=== PATIENT | male | born 1955 | race Caucasian/White ===

== ENCOUNTER 2019-11-13 06:52 | Observation (INO) | payer OTHER ==
[2019-11-10 17:06] LABS: BASOPHILS % 0.3 % (0.0-1.0); EOSINOPHILS # (AUTO) 0.3 (0.0-0.4); EOSINOPHILS % 2.9 % (0.0-6.0); HEMATOCRIT 46.6 % (38.2-49.6); HEMOGLOBIN 15.7 g/dL (14.0-18.0); LYMPHOCYTES # (AUTO) 2.5 (1.0-3.2); LYMPHOCYTES % 24.1 % (18.0-39.1); MEAN CORPUSCULAR HEMOGLOBIN 33.5 pg (28-32); MEAN CORPUSCULAR HGB CONC 33.7 g/dL (31-35); MEAN CORPUSCULAR VOLUME 99.6 fL (81-99); MONOCYTES # (AUTO) 0.8 (0.2-0.8); MONOCYTES % 8.1 % (4.4-11.3); NEUTROPHILS # (AUTO) 6.4 (2.1-6.9); NEUTROPHILS % 63.2 % (38.7-80.0); PLATELET COUNT 233 x10e3/uL (140-360); RED BLOOD COUNT 4.68 x10e6/uL (4.3-5.7); RED CELL DISTRIBUTION WIDTH 14.7 % (11.7-14.4)
[2019-11-10 17:18] LABS: INR 0.84; PARTIAL THROMBOPLASTIN TIME 23.4 seconds (23.8-35.5)
[2019-11-10 17:23] LABS: ANION GAP 15.8 mmol/L (8-16); BLOOD UREA NITROGEN 18 mg/dL (7-26); BUN/CREATININE RATIO 20 (6-25); CALCIUM 9.2 mg/dL (8.4-10.2); CARBON DIOXIDE 22 mmol/L (22-29); CHLORIDE 107 mmol/L (98-107); EST GLOMERULAR FILTRATION RATE > 60 ML/MIN (60-); GLUCOSE 134 mg/dL (74-118); POTASSIUM 3.8 mmol/L (3.5-5.1); SODIUM 141 mmol/L (136-145)
--- NOTE | 2019-11-10 18:02 | Diagnostic Imaging Report ---
EXAMINATION: CHEST 2 VIEWS INDICATION: PRE OP LUMBAR SURGERY COMPARISON: None FINDINGS: TUBES and LINES: None. LUNGS: Lungs are mildly hypoinflated. Bibasilar subsegmental atelectasis, left greater than right. There is no evidence of pneumonia or pulmonary edema. PLEURA: No pleural effusion or pneumothorax. HEART AND MEDIASTINUM: The cardiomediastinal silhouette is unremarkable. BONES AND SOFT TISSUES: No acute osseous lesion. Soft tissues are unremarkable. UPPER ABDOMEN: No free air under the diaphragm. IMPRESSION: Bibasilar atelectasis. Signed by: Dr. Shirin Norman M.D. on 11/10/2019 5:58 PM
[~2019-11-13] VITALS: Ht 182.9 cm; Wt 101.2 kg
[~2019-11-13 06:52] MED LIST: ALBUTEROL0.63 MG/3 INH; AZITHROMYCIN250 MG PO; BACITRACIN 50,000 UNIT VIAL ONE; BREO ELLIPTA 11 EACH INH; BUPIVACAINE 0.5%/EPI 30 ML SDV INJ ONE; CHANTEX; CHANTIX1 MG PO; COMBIVENT RESPIM4 GM IH; DICLOFENAC SODI75 MG PO; GABAPENTIN300 MG PO; HYDROCODON-ACE1 EAC9 PEG; METHOCARBAMOL750 MG PO; NORCO 7.5-3251 EACH PO; SPIRIVA18 MCG INH; SYMBICORT 80-10.2 GM INH; TAMIFLU75 MG PO; TESSALON PERLE100 MG PO; THROMBIN FOR SOLN 5,000 UNIT VIAL ONE
[2019-11-13] MEDS ORDERED: LIDOCAINE HCL (LTA) 4 ML SOLN ONE (07:13)
[2019-11-13] MEDS ORDERED: CEFAZOLIN SOD 1 GM/NS 50ML 100 ML IV ONE (08:03)
[2019-11-13] MEDS ORDERED: ZOLPIDEM TARTRATE 5 MG TAB PO PRN (09:45)
[2019-11-13] MEDS ORDERED: OXYCODONE/ACETAMINOPHEN 5-325 1 EACH TABLET PO PRN (09:45)
[2019-11-13] MEDS ORDERED: ALBUTEROL SULF 0.083% NEB SOLN 3 ML NEB INH PRN (09:45)
[2019-11-13] MEDS ORDERED: ACETAMINOPHEN 325 MG TAB PO PRN (09:45)
[2019-11-13] MEDS ORDERED: HYDROMORPHONE 2MG/ML 2 MG/ML ML IV PRN (09:45)
[2019-11-13] MEDS ORDERED: MORPHINE SULFATE INJ 4 MG/ML INJ 1ML IM PRN (09:45)
[2019-11-13] MEDS ORDERED: MAGNESIUM/ALUMINUM/SIMETHICONE 30 ML UDC PO PRN (09:45)
[2019-11-13] MEDS ORDERED: PROMETHAZINE HCL (IM) 25 MG/ML VIAL IM PRN (09:45)
[2019-11-13] MEDS ORDERED: METHOCARBAMOL 750 MG TAB PO PRN (09:45)
[2019-11-13] MEDS ORDERED: ONDANSETRON HCL INJ 2MG/ML 2ML 2 MG/ML VIAL IV PRN (09:45)
--- OUTSIDE RECORDS SUMMARY | 2019-11-13 09:54 | XMS REPORT | Continuity of Care Document ---
Author Author [facility] t Organization [facility] Address [address] [place] [address] Dr. Carr. [address] [place] [phone] Phone Unavailable Care Team Providers Care Filter Press Pumper Name Role Phone BHUPINDER BUSCH Attphys Unavailable Problems This patient has no known problems. Allergies, Adverse Reactions, Alerts This patient has no known allergies or adverse reactions. Medications This patient has no known medications. Procedures This patient has no known procedures. Results Test Description Test Time Test Comments Results Result Comments Source CHEST 2 VIEWS 2019-11-10 17:57:00 [facility] [address] [place] [address] Patient Name: PAUL OHARA JR MR #: [id number] : 1955 Age/Sex: 64/M Req #: [id number] Adm Physician: Ordered by: BHUPINDER BUSCH MD Report #: [id number] Location: OR Room/Bed: Procedure: [id number] DX/CHEST 2 VIEWS Exam Date: 11/10/19 Exam Time: 1705 REPORT STATUS: Signed EXAMINATION: CHEST 2 VIEWS INDICATION: PRE OP LUMBAR SURGERY COMPARISON: None FINDINGS: TUBES and LINES: None. LUNGS: Lungs are mildly hypoinflated. Bibasilar subsegmental atelectasis, left greater than right. There is no evidence of pneumonia or pulmonary edema. PLEURA: No pleural effusion or pneumothorax. HEART AND MEDIASTINUM: The cardiomediastinal silhouette is unremarkable. BONES AND SOFT TISSUES: No acute osseous lesion. Soft tissues are unremarkable. UPPER ABDOMEN: No free air under the diaphragm. IMPRESSION: Bibasilar atelectasis. Signed by: Dr. Shirin Trevizo M.D. on 11/10/2019 5:58 PM Dictated By: ROQUE TREVIZO MD, MD 55 Transcribed By: FRANCISCO on 11/10/191757 COPY TO: BHUPINDER BUSCH MD
[2019-11-13] MEDS ORDERED: MORPHINE SULFATE INJ 4 MG/ML INJ 1ML ONE (10:01)
[2019-11-13] MEDS ORDERED: HYDRALAZINE HCL 20 MG/ML VIAL ONE (10:47)
--- NOTE | 2019-11-13 11:48 | Operative Report ---
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 POSTOPERATIVE DIAGNOSIS: Left L3-L4 lateral recess stenosis with neurogenic claudication, M48.062. PROCEDURES: Left L3-L4 laminotomy, medial facetectomy, and microsurgical lateral recess decompression, 14867. ANESTHESIA: General. INDICATIONS: The patient is a 64-year-old man, who presents with severe left L3-L4 lateral recess stenosis and was taken to surgery for lateral recess decompression. PROCEDURE IN DETAIL: After induction of anesthesia, the patient was placed on the operating table in prone position over Byron frame. Lumbar region was prepped and draped in sterile fashion. A preoperative x-ray was obtained. A small midline incision was created. Lumbar fascia was opened to the left of midline and a subperiosteal dissection was carried out to expose the left side of the L3 and L4 lamina and the medial aspect of the facet joint. A second x-ray confirmed correct localization. The operating microscope was brought in. A high-speed drill equipped with a kamala bur was used to drill the inferior aspect of lamina of L3 and the medial rim of the L3-L4 facet joint and superior rim of the lamina of L4. The markedly hypertrophic ligamentum flavum was resected until the dura and the left L4 traversing nerve root were fully exposed and decompressed. Meticulous hemostasis was secured. Retractor was removed. The lumbar fascia was closed with 0 Vicryl suture. Subcutaneous layer was closed with 2-0 Vicryl sutures. The skin was closed with 3-0 Monocryl sutures in subcuticular fashion. Steri-Strips and dressing were applied. The patient was awakened, extubated, and taken to Postanesthesia Care Unit in stable condition. No intraoperative complications were encountered. Estimated blood loss was 10 mL. Basilio Levi MD PP/MODL /[id number]
[2019-11-13 13:00] VITALS: BP 170/104
[2019-11-13 13:15] VITALS: BP 170/104
[2019-11-13] MEDS ORDERED: METOPROLOL TARTRATE INJ 1 MG/ML VIAL IV PRN (13:15)
[2019-11-13] MEDS: LACTATED RINGER'S 1,000 ML IV SCH ×2 (13:36→22:05)
[2019-11-13 14:28] VITALS: BP 150/84
--- NOTE | 2019-11-13 14:44 | Diagnostic Imaging Report ---
EXAM: SPINE 1 VW LUMBAR, SPINE 1 VW LUMBAR DATE: 11/13/2019 8:30 AM INDICATION: Intraoperative examination FINDINGS/IMPRESSION: Two crosstable intraoperative radiographs are obtained of the lumbar spine. An intraoperative verbal report was not requested. Please see operative report for further details. Localization instrumentation projects towards the posterior aspect of the L3-L4 intervertebral level. Signed by: Dr. Chuy Graves MD on 11/13/2019 2:40 PM
[2019-11-13] MEDS: GABAPENTIN 300 MG CAP PO SCH ×2 (14:57→21:08)
[2019-11-13] MEDS ORDERED: MIDAZOLAM HCL 2 MG/2 ML VIAL ONE (15:09)
[2019-11-13] MEDS ORDERED: FENTANYL CITRATE/PF 100MCG/2 ML INJ ONE (15:09)
[2019-11-13] MEDS: NON-FORMULARY MEDICATION (Diclofenac Sodium 75 MG) PO SCH (17:00)
[2019-11-13] MEDS: CEFAZOLIN SOD 1 GM/NS 50ML 50 ML IV SCH (17:28)
--- NOTE | 2019-11-13 18:56 | Consultation ---
DATE OF CONSULTATION: HISTORY OF PRESENT ILLNESS: The patient is a 64-year-old gentleman, who came to the hospital for surgery with Dr. Levi. He had L3-L4 laminectomy with facetectomy and the patient came out postop and was having high blood pressure and was called in for consult for blood pressure management. PAST MEDICAL HISTORY: History of asthma, history of low back pain, history of neuropathy, and history of osteoarthritis. MEDICATIONS: He takes at home are fluticasone, gabapentin, hydrocodone, ipratropium, albuterol, Combivent as needed, and methocarbamol 750 mg once a day. PAST SURGICAL HISTORY: Bilateral knee surgeries, lumbar injections and also decompression by Dr. Levi in the past. SOCIAL HISTORY: He is a smoker, no EtOH, no IV drug abuse either. FAMILY HISTORY: Noncontributory. REVIEW OF SYSTEMS: At this time, no chest pain and no shortness of breath. Positive pain at the surgical site and anxiety noted. PHYSICAL EXAMINATION: HEENT: Normocephalic, atraumatic. Pupils are reactive to light and accommodation. CVS: S1 and S2 normal. Regular rate and rhythm. ABDOMEN: Nontender, nondistended. BACK: Surgical site in bandage. EXTREMITIES: No clubbing, no cyanosis, and trace amount of edema. LABORATORY VALUES: White count is 10.19, hemoglobin of 15, hematocrit 46.6. Chemistry shows sodium 141, potassium 3.8. COVID-19 is nondetected. Coags were normal. ASSESSMENT: Mr. Mark Akers is status post laminectomy with elevated blood pressure. The patient has been given hydralazine and metoprolol 2.5 mg and is on Soma at this time, currently on oxycodone too. PLAN: I gave him 5 mg metoprolol q.6 hours as needed, also hydralazine in between more than likely secondary to pain. Further recommendation per clinical course. We will continue monitoring his blood pressure and discharge in the morning. MD LUIS F Wall/TAYLAL /[id number]
[2019-11-13] MEDS: IPRATROPIUM/ALBUTEROL SULFATE 4 GM INH INH SCH (19:00)
[2019-11-13 20:00] VITALS: BP 157/94
[2019-11-13] MEDS ORDERED: ROCURONIUM BROMIDE 10 MG/ML 5ML VIAL IV ONE (20:14)
[2019-11-13] MEDS ORDERED: PROPOFOL IV EMULSION 10 MG/ML 20 ML VIAL ONE (20:14)
[2019-11-13] MEDS ORDERED: ONDANSETRON HCL INJ 2MG/ML 2ML 2 MG/ML VIAL ONE (20:14)
[2019-11-13] MEDS ORDERED: NEOSTIGMINE 1 MG/ML 10ML VIAL ONE (20:14)
[2019-11-13] MEDS ORDERED: GLYCOPYRROLATE INJ 0.2 MG/ML VIAL ONE (20:14)
[2019-11-13] MEDS ORDERED: DEXAMETHASONE SOD PHOS INJ 4 MG/ML VIAL ONE (20:14)
[2019-11-13] MEDS ORDERED: ACETAMINOPHEN 1000 MG/100 ML IV ONE (20:14)
[2019-11-13] MEDS ORDERED: LIDOCAINE HCL 2% LOCAL INJ 5 ML SDV VIAL INJ ONE (20:14)
[2019-11-13] MEDS ORDERED: SEVOFLURANE INHAL SOLN 250 ML PEN BTL ONE (20:14)
[2019-11-13] MEDS ORDERED: ETOMIDATE 2 MG/ML 10 ML INJ IV ONE (20:14)
[2019-11-13 22:48] VITALS: BP 157/94
[2019-11-13] MEDS: CARISOPRODOL 350 MG TAB PO PRN (23:40)
[2019-11-13] MEDS: OXYCODONE/ACETAMINOPHEN 5-325 1 EACH TABLET PO PRN (23:40)
[2019-11-14] VITALS: BP 163/99
[2019-11-14] MEDS: CEFAZOLIN SOD 1 GM/NS 50ML 50 ML IV SCH ×2 (00:20→09:00)
[2019-11-14 04:00] VITALS: BP 137/90
[2019-11-14] MEDS: LACTATED RINGER'S 1,000 ML IV SCH (06:25)
[2019-11-14] MEDS: CARISOPRODOL 350 MG TAB PO PRN (06:37)
[2019-11-14] MEDS: OXYCODONE/ACETAMINOPHEN 5-325 1 EACH TABLET PO PRN ×2 (06:37→10:50)
--- NOTE | 2019-11-14 06:49 | NUR ---
PATIENT IS RESTING COMFORTABLY IN THE BED. BED IS IN LOWEST POSITION AND CALL YIP IS WITHIN REACH
[2019-11-14] MEDS: IPRATROPIUM/ALBUTEROL SULFATE 4 GM INH INH SCH (07:00)
[2019-11-14] MEDS ORDERED: NORCO 7.5-3251 EACH PO (07:45)
[2019-11-14] MEDS ORDERED: LOSARTAN POTASS25 MG PO (07:46)
[2019-11-14 08:15] VITALS: BP 129/78
--- NOTE | 2019-11-14 08:43 | Progress Note ---
DATE: SUBJECTIVE: A 64-year-old gentleman, who came in with lumbar stenosis, status post laminectomy and facetectomy by Dr. Levi. Currently doing well. Pain is controlled, 3/10 in intensity and has been taking Percocet, 2 tablets every 6 hours. MEDICATIONS: Currently, metoprolol as needed, hydralazine as needed. A consult was made for hypertension management. OBJECTIVE: VITAL SIGNS: Currently, temperature is 97.4, pulse of 62, respirations , blood pressure is 137/90, pulse oximetry of 95%. HEENT: Normocephalic and atraumatic. Pupils are reactive. CVS: S1 and S2 normal. Regular rate and rhythm. ABDOMEN: Nontender. Nondistended. EXTREMITIES: No clubbing, no cyanosis, no edema. The patient is in a compression stocking. LABORATORY VALUES: None done today. Chemistries are all stable. ASSESSMENT: Mr. Mark Akers with: 1. Status post laminectomy for lumbar stenosis and radiculopathy with facetectomy. 2. Hypertension. We will start the patient on losartan 25 mg twice a day and discharge him today with 25 mg twice a day of losartan, to be followed up in the clinic in about a week's time. Continue monitoring the patient's pain and pain medicine has been written by Dr. Levi. Further recommendation per clinical course. MD LUIS F Wall/TAYLAL /[id number]
[2019-11-14] MEDS: NON-FORMULARY MEDICATION (Diclofenac Sodium 75 MG) PO SCH (09:00)
[2019-11-14] MEDS: GABAPENTIN 300 MG CAP PO SCH (09:00)
[2019-11-14 09:02] VITALS: BP 129/78
--- NOTE | 2019-11-14 09:09 | NUR ---
ANTIBIOTIC INFUSING, ELDON NOTED AT THIS TIME, DISCUSSED DISCHARGE PLANNING, PT VERBALIZED UNDERSTANDING, CALL LIGHT WITHIN REACH
--- NOTE | 2019-11-14 10:52 | NUR ---
MEDICATED PER MD ORDER FOR PAIN, DISCHARGE INSTRUCTIONS REVIEWED WITH PT, VERBALIZED UNDERSTANDING, AWAITING RIDE FOR DISCHARGE
== END 2019-11-14 11:15 | disposition home or self-care (01) ==
LOC: OR 06:52 → PACU V 09:48 → MED/SURG 12:40
PROVIDERS: ADMIT Neurological Surgery; ATTEND Neurological Surgery
DX: M48.062 Spinal stenosis, lumbar region with neurogenic claudication (principal); I10 Essential (primary) hypertension; M54.16 Radiculopathy, lumbar region; G99.2 Myelopathy in diseases classified elsewhere
CPT/HCPCS: 36415; 63047; 71046; 72020; 80048; 85025; 85610; 85730; 86850; 86900; 87635; 88304; 93005; G0378 ×2; J0131; J0360; J0690 ×2; J1100; J1170; J2001; J2250; J2270; J2405; J2704; J2710; J3010; J7121

== ENCOUNTER 2020-05-05 07:03 | Inpatient (IN) | payer OTHER ==
[~2020-05-05] VITALS: Ht 182.9 cm; Wt 102.1 kg
[~2020-05-05 07:03] MED LIST changes: -BACITRACIN 50,000 UNIT VIAL ONE; -BUPIVACAINE 0.5%/EPI 30 ML SDV INJ ONE; +LOSARTAN POTASS25 MG PO; -THROMBIN FOR SOLN 5,000 UNIT VIAL ONE
[2020-05-05] MEDS ORDERED: ACETAMINOPHEN 325 MG TAB PO STA (07:19)
[2020-05-05] MEDS ORDERED: SODIUM CHLORIDE 0.9% 1000ML 1,000 ML ONE (07:27)
[2020-05-05 07:43] LABS: BASOPHILS % 0.3 % (0.0-1.0); EOSINOPHILS # (AUTO) 0.2 (0.0-0.4); EOSINOPHILS % 1.7 % (0.0-6.0); HEMATOCRIT 42.5 % (38.2-49.6); HEMOGLOBIN 14.8 g/dL (14.0-18.0); LYMPHOCYTES # (AUTO) 2.4 (1.0-3.2); LYMPHOCYTES % 26.5 % (18.0-39.1); MEAN CORPUSCULAR HEMOGLOBIN 33.9 pg (28-32); MEAN CORPUSCULAR HGB CONC 34.8 g/dL (31-35); MEAN CORPUSCULAR VOLUME 97.3 fL (81-99); NEUTROPHILS # (AUTO) 5.5 (2.1-6.9); NEUTROPHILS % 60.1 % (38.7-80.0); PLATELET COUNT 234 x10e3/uL (140-360); RED BLOOD COUNT 4.37 x10e6/uL (4.3-5.7); RED CELL DISTRIBUTION WIDTH 12.6 % (11.7-14.4)
[2020-05-05] MEDS ORDERED: SODIUM CHLORIDE 0.9% 1000ML 1,000 ML IV SCH (08:00)
[2020-05-05 08:01] LABS: ALANINE AMINOTRANSFERASE 74 IU/L (0-55); ALBUMIN 4.1 g/dL (3.5-5.0); ALBUMIN/GLOBULIN RATIO 1.5 (0.8-2.0); ALKALINE PHOSPHATASE 56 IU/L (40-150); ANION GAP 14.7 mmol/L (8-16); BLOOD UREA NITROGEN 11 mg/dL (7-26); BUN/CREATININE RATIO 10 (6-25); CALCIUM 9.6 mg/dL (8.4-10.2); CARBON DIOXIDE 23 mmol/L (22-29); CHLORIDE 103 mmol/L (98-107); CREATININE, SERUM 1.13 mg/dL (0.72-1.25); EST GLOMERULAR FILTRATION RATE > 60 ML/MIN (60-); GLUCOSE 113 mg/dL (74-118); POTASSIUM 3.7 mmol/L (3.5-5.1); SODIUM 137 mmol/L (136-145)
[2020-05-05] MEDS ORDERED: KETOROLAC TROMETHAMINE 30 MG/ML VIAL IV STA (08:58)
[2020-05-05] MEDS ORDERED: IOPAMIDOL 370 MG/ML 200 ML INFUS..BTL INJ ONE (09:51)
[2020-05-05] MEDS ORDERED: SODIUM CHLORIDE 0.9% 50ML 50 ML ONE (09:51)
[2020-05-05] MEDS ORDERED: CEFTRIAXONE SOD 1 GM/NS 50 ML 50 ML IV ONE (10:15)
[2020-05-05] MEDS ORDERED: CLONIDINE HCL0.1 MG PO (11:56)
[2020-05-05] MEDS ORDERED: LOSARTAN POTASS50 MG PO (11:57)
[2020-05-05] MEDS ORDERED: CHLORDIAZEPOXID25 MG PO (11:57)
[2020-05-05] MEDS ORDERED: BREO ELLIPTA 21 EACH IH (11:57)
[2020-05-05 12:51] VITALS: BP 148/90
[2020-05-05 13:56] LABS: BILIRUBIN,URINE NEGATIVE (NEGATIVE); CLARITY,URINE CLEAR (CLEAR); COLOR,URINE YELLOW (YELLOW); KETONES,URINE NEGATIVE (NEGATIVE); LEUKOCYTE ESTERASE ,URINE NEGATIVE (NEGATIVE); NITRITE,URINE NEGATIVE (NEGATIVE); PROTEIN,URINE DIPSTICK TRACE (NEGATIVE); URINE UROBILINOGEN 1 mg/dL (0.2 - 1)
[2020-05-05 13:57] LABS: BACTERIA,URINE RARE /HPF; RBC,URINE 21-50 /HPF (0-5)
[2020-05-05 14:00] VITALS: BP 148/90
[2020-05-05] MEDS: ONDANSETRON HCL INJ 2MG/ML 2ML 2 MG/ML VIAL IV PRN ×2 (15:10→19:23)
[2020-05-05] MEDS: MORPHINE SULFATE INJ 4 MG/ML INJ 1ML IV PRN ×2 (15:10→19:23)
[2020-05-05 16:00] VITALS: BP 143/90
[2020-05-05] MEDS: CLONIDINE HCL 0.1 MG TAB PO SCH (17:22)
[2020-05-05] MEDS: MULTIVITAMINS- 12 INJECTION 10 ML, FOLIC ACID MDV 5 MG, THIAMINE HCL INJ 100 MG in SODI... IV SCH (17:22)
[2020-05-05] MEDS: CHLORDIAZEPOXIDE HCL 25 MG CAP PO SCH (17:23)
[2020-05-05 20:00] VITALS: BP 140/79
[2020-05-05 20:16] VITALS: BP 140/79
[2020-05-06] VITALS (8 sets, daily range): BP systolic 125–141; BP diastolic 78–89
[2020-05-06] MEDS: MORPHINE SULFATE INJ 4 MG/ML INJ 1ML IV PRN ×4 (04:55→20:51)
[2020-05-06] MEDS: ONDANSETRON HCL INJ 2MG/ML 2ML 2 MG/ML VIAL IV PRN ×3 (04:55→09:20)
[2020-05-06 05:45] LABS: BASOPHILS % 0.3 % (0.0-1.0); EOSINOPHILS # (AUTO) 0.2 (0.0-0.4); EOSINOPHILS % 2.7 % (0.0-6.0); HEMATOCRIT 41.3 % (38.2-49.6); HEMOGLOBIN 13.7 g/dL (14.0-18.0); LYMPHOCYTES # (AUTO) 2.2 (1.0-3.2); LYMPHOCYTES % 33.3 % (18.0-39.1); MEAN CORPUSCULAR HEMOGLOBIN 33.3 pg (28-32); MEAN CORPUSCULAR HGB CONC 33.2 g/dL (31-35); MEAN CORPUSCULAR VOLUME 100.2 fL (81-99); MONOCYTES # (AUTO) 0.8 (0.2-0.8); MONOCYTES % 12.1 % (4.4-11.3); NEUTROPHILS # (AUTO) 3.4 (2.1-6.9); NEUTROPHILS % 51.1 % (38.7-80.0); PLATELET COUNT 234 x10e3/uL (140-360); RED BLOOD COUNT 4.12 x10e6/uL (4.3-5.7); RED CELL DISTRIBUTION WIDTH 12.3 % (11.7-14.4)
[2020-05-06 06:10] LABS: ANION GAP 12.8 mmol/L (8-16); BLOOD UREA NITROGEN 10 mg/dL (7-26); BUN/CREATININE RATIO 9 (6-25); CARBON DIOXIDE 25 mmol/L (22-29); CHLORIDE 104 mmol/L (98-107); CREATININE, SERUM 1.16 mg/dL (0.72-1.25); EST GLOMERULAR FILTRATION RATE > 60 ML/MIN (60-); GLUCOSE 92 mg/dL (74-118); POTASSIUM 3.8 mmol/L (3.5-5.1); SODIUM 138 mmol/L (136-145)
[2020-05-06] MEDS: MULTIVITAMINS- 12 INJECTION 10 ML, FOLIC ACID MDV 5 MG, THIAMINE HCL INJ 100 MG in SODI... IV SCH (07:08)
[2020-05-06] MEDS: CHLORDIAZEPOXIDE HCL 25 MG CAP PO SCH ×2 (09:13→09:15)
[2020-05-06] MEDS: CLONIDINE HCL 0.1 MG TAB PO SCH ×3 (09:15→21:00)
[2020-05-06] MEDS: KETOROLAC TROMETHAMINE 30 MG/ML VIAL IV PRN (18:20)
[2020-05-07] VITALS (8 sets, daily range): BP systolic 132–153; BP diastolic 62–88
[2020-05-07] MEDS: MULTIVITAMINS- 12 INJECTION 10 ML, FOLIC ACID MDV 5 MG, THIAMINE HCL INJ 100 MG in SODI... IV SCH (00:48)
[2020-05-07] MEDS: KETOROLAC TROMETHAMINE 30 MG/ML VIAL IV PRN (05:33)
[2020-05-07] MEDS ORDERED: CHLORDIAZEPOXIDE HCL 25 MG CAP PO PRN (07:45)
[2020-05-07] MEDS: CLONIDINE HCL 0.1 MG TAB PO SCH ×3 (08:45→21:49)
[2020-05-07] MEDS: NON-FORMULARY MEDICATION (Fluticasone/Vilanterol (Breo Ellipta 200-25 Mcg INH) 1 INH) INH SCH (09:00)
[2020-05-07] MEDS: MORPHINE SULFATE INJ 4 MG/ML INJ 1ML IV PRN ×3 (13:06→22:06)
[2020-05-07] MEDS: ENOXAPARIN SOD INJ 40 MG/0.4 ML SYR SC SCH (16:32)
[2020-05-08] MEDS: MULTIVITAMINS- 12 INJECTION 10 ML, FOLIC ACID MDV 5 MG, THIAMINE HCL INJ 100 MG in SODI... IV SCH (00:01)
[2020-05-08 05:08] VITALS: BP 142/99
[2020-05-08] MEDS: NON-FORMULARY MEDICATION (Fluticasone/Vilanterol (Breo Ellipta 200-25 Mcg INH) 1 INH) INH SCH (06:00)
[2020-05-08 08:26] VITALS: BP 138/74
[2020-05-08 08:30] VITALS: BP 138/74
[2020-05-08] MEDS: CLONIDINE HCL 0.1 MG TAB PO SCH ×2 (08:59→15:00)
[2020-05-08 13:13] VITALS: BP 141/84
[2020-05-08] MEDS: MORPHINE SULFATE INJ 4 MG/ML INJ 1ML IV PRN (14:39)
[2020-05-08 16:13] VITALS: BP 138/76
[2020-05-08] MEDS: ENOXAPARIN SOD INJ 40 MG/0.4 ML SYR SC SCH (17:00)
== END 2020-05-08 18:00 | disposition home health service (06) | DRG 698 ==
LOC: ER 07:11 → ERHOLD 10:06 → MED/SURG2 12:33
PROVIDERS: ADMIT Family Medicine; ATTEND Family Medicine
DX: N32.89 Other specified disorders of bladder (principal); G93.41 Metabolic encephalopathy; F10.231 Alcohol dependence with withdrawal delirium; I10 Essential (primary) hypertension; E78.5 Hyperlipidemia, unspecified; E66.01 Morbid (severe) obesity due to excess calories; R31.29 Other microscopic hematuria; G31.2 Degeneration of nervous system due to alcohol; Z68.30 Body mass index [BMI] 30.0-30.9, adult; K76.0 Fatty (change of) liver, not elsewhere classified; Z20.828 Contact with and (suspected) exposure to other viral communicable diseases
CPT/HCPCS: 36415; 71045; 71046; 74177; 80048; 80053; 81001; 83605; 84443; 84484; 85025; 87040; 87086; 87400; 93005; 93306; 96361; 97139; 99284; J0696; J1650; J1885; J2270; J2405; J3411; J7030; Q9967; U0002